=== PATIENT | male | born 1975 | race African-American/Black ===

== ENCOUNTER 2018-12-13 07:10 | Emergency (ER) | payer SELFPAY ==
[2018-12-13 08:01] LABS: #Basophils 0.1 thou/uL (0.0-0.2); #Lymphocytes 1.6 thou/uL (1.20-3.40); #Monocytes 0.8 thou/uL (0.11-0.59); #Neutrophils 7.2 thou/uL (1.40-6.50); %Basophils 0.6 % (0.0-1.0); %Eosinophils 0.2 % (0.0-10.0); %Lymphocytes 16.9 % (21.0-51.0); %Neutrophils 74.3 % (42.0-75.0); Hemoglobin 13.6 g/dL (14.0-18.0); Mean Corpuscular HGB CONC 30.8 g/dL (32.0-36.0); Mean Corpuscular Hemoglobin 22.7 pg (27.0-31.0); Mean Corpuscular Volume 73.7 fL (78.0-98.0); Mean Platelet Volume 8.6 fL (7.4-10.4); Platelet Count 219 thou/uL (130-400); RBC Distribution Width 17.2 % (11.5-14.5); Red Blood Cell (RBC) Count 5.97 mill/uL (4.70-6.10); White Blood Cell (WBC) Count 9.7 thou/uL (4.8-10.8)
[2018-12-13 08:07] LABS: Anisocytosis SLIGHT = 6-15 cells (100X) (0-5/hpf)
[2018-12-13 08:08] LABS: Platelet Morphology Comment Appears Adequate
[2018-12-13 08:10] LABS: ALT (SGPT) 26 U/L (8-55); AST (SGOT) 28 U/L (5-34); Alkaline Phosphatase 78 U/L (40-110); Anion Gap 17 mmol/L (10-20); BUN (Urea Nitrogen) 9 mg/dL (8.9-20.6); Bilirubin, Total 0.4 mg/dL (0.2-1.2); Calc. Creatinine Clearance 0 mL/min (70-130); Calcium 8.8 mg/dL (7.8-10.44); Carbon Dioxide 24 mmol/L (22-29); Chloride 105 mmol/L (98-107); Estimated GFR-MDRD Greater than 90; Globulin 3.7 g/dL (2.4-3.5); Glucose 107 mg/dL (70-105); Potassium 3.9 mmol/L (3.5-5.1); Protein, Total 7.7 g/dL (6.0-8.3); Sodium 142 mmol/L (136-145)
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
[2018-12-13] MEDS ORDERED: Adacel (T-DAP) 0.5 ML SYRINGE ONE (09:08)
[2018-12-13] MEDS ORDERED: Morphine 4 MG/ML VIAL ONE (09:08)
--- NOTE | 2018-12-13 09:10 | RAD ---
XR Femur Lt 2 View STANDARD History: Trauma Comparison: None. Findings: No acute fracture or malalignment. Postcontrast within the urinary bladder. Soft tissues ar e edematous. ACL graft interference screws. Impression: No acute osseous abnormality.
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
[2018-12-13 09:42] LABS: Bilirubin Negative (Negative); Blood, Urine Trace (Negative); Clarity Clear (Clear); Glucose, Urine (Dipstick) Negative (Negative); Leukocyte Negative (Negative); Nitrite Negative (Negative); Protein, Urine (Dipstick) 30 mg/dL (Neg-Trace); Urobilinogen 0.2 mg/dL (Less than 2)
[2018-12-13 09:44] LABS: Bacteria/HPF None Seen HPF (None Seen); RBC/HPF 0-3 HPF (0-3); Squamous Epithelial None Seen HPF (0-3); WBC/HPF None Seen HPF (0-3)
[2018-12-13] MEDS ORDERED: Iopamidol 370 76% 100 ML VIAL ONE (09:48)
== END 2018-12-13 10:50 | disposition home or self-care (01) ==
LOC: MADERS 07:10
DX: S16.1XXA Strain of muscle, fascia and tendon at neck level, initial encounter (principal); S20.212A Contusion of left front wall of thorax, initial encounter; S80.212A Abrasion, left knee, initial encounter; V63.5XXA Driver of heavy transport vehicle injured in collision with car, pick-up truck or van in traffic accident, initial encounter
CPT/HCPCS: 70450; 71260; 72125; 74177; 80053; 81003; 81015; 85025; 90471; 90715; 96374; G0390; J2270; Q9967